=== PATIENT | female | born 1955 | race Caucasian/White ===

== ENCOUNTER 2016-12-16 08:55 | Emergency (ER) | payer OTHER ==
[~2016-12-16] VITALS: Ht 165.1 cm; Wt 89.0 kg
[~2016-12-16 08:55] MED LIST: BUTA1CAP38 PO; ONDA4TAB8 PO
[2016-12-16 08:58] VITALS: Ht 165.1 cm; Wt 89.0 kg
[2016-12-16] MEDS ORDERED: traMADol 50 MG TAB PO ONE (09:30)
--- NOTE | 2016-12-16 09:45 | ERD ---
ER Documentation Chief Complaint Date/Time DATE: 12/16/16 TIME: 09:44 Chief Complaint rt shoulder pain , rt arm numbness x 2 weeks HPI 61-year-old female presents with right posterior anterior shoulder pain that is achy and diffuse for the past 2 weeks. She has tried taking Tylenol and ibuprofen with some relief however mild improvement only. She denies any trauma or fevers or chills. She denies weakness. ROS All systems reviewed and are negative except as per history of present illness. Medications Home Meds Active Scripts Tramadol HCl (Tramadol HCl) 50 Mg Tablet, 50 MG PO Q4 Y for PAIN, #20 TAB Prov:JONI RENDON PA-C 12/16/16 Uqddfenppw-Vipdugwzeiuvt-Uzhnxdae* (Fioricet*) 50-300-40 Mg Capsule, 1 CAP PO Q4H Y for HEADACHE for 10 Days, #30 CAP Prov:GREGORY BECK PA-C 05/31/16 Ondansetron Hcl* (Zofran*) 4 Mg Tablet, 4 MG PO Q6H for NAUSEA AND/OR VOMITING, #30 TAB Prov:GREGORY BECK PA-C 05/31/16 Allergies Allergies: Coded Allergies: Penicillins (Verified Allergy, Intermediate, 12/16/16) PMhx/Soc History of Surgery: Yes (caesarian section) Anesthesia Reaction: No Hx Neurological Disorder: Yes Hx Respiratory Disorders: No Hx Cardiac Disorders: Yes (hypertension) Hx Psychiatric Problems: No Hx Miscellaneous Medical Probl: Yes (diabetes mellitus; gastric ulcers) Hx Alcohol Use: No Hx Substance Use: No Hx Tobacco Use: No Smoking Status: Never smoker Physical Exam Vitals Vital Signs Date Time Temp Pulse Resp B/P Pulse Ox O2 Delivery O2 Flow Rate FiO2 12/16/16 08:58 98.1 70 18 145/88 99 Physical Exam General: Well-developed, well-nourished. The patient appears in no acute distress. HEENT: Head is normocephalic, atraumatic. No scleral icterus. Neck: Supple. Nontender. Lungs: Clear to auscultation. Normal air movement. Heart: Regular rate and rhythm. S1 and S2 are normal. No murmurs, gallops, or rubs. Abdomen: Nondistended. Extremities: Diffuse right shoulder pain at the posterior aspect, there is no scapular winging, no bony deformities. There is no erythema, no warmth, no rashes. Patient is distally neurovascularly intact. Neurologic: Alert and oriented 3. No focal deficits. Normal speech and gait. Skin: Normal turgor. No rash or lesions. Results 24 hrs Current Medications Medications (Trade) Dose Ordered Sig/Jean Route PRN Reason Start Time Stop Time Status Last Admin Dose Admin Tramadol HCl (Ultram) 50 mg ONCE ONCE PO 12/16/16 09:30 12/16/16 09:31 DC 12/16/16 09:17 PROCEDURE: XR right shoulder. CLINICAL INDICATION: Right shoulder pain x 2 weeks TECHNIQUE: AP, Internal and external rotation views of the right shoulder were performed. COMPARISON: None. FINDINGS: There is normal osseous mineralization and alignment. No acute fracture or osseous lesion is identified. Mild degenerative changes are seen at the acromioclavicular joint. The soft tissues are unremarkable. IMPRESSION: Mild degenerative changes are seen at the acromioclavicular joint. Otherwise, no significant abnormalities are identified. RPTAT:AAJJ Physician Vincent Date Time Electronically viewed and signed by Physician Vincent on 12/16/2016 09: 50 MC/ Procedures/MDM ED course: Patient was given tramadol for pain. MDM: 61-year-old female comes in with right shoulder pain, patient has diffuse shoulder tenderness, likely from tendinitis. There is no evidence of fracture on x-ray, signs of septic arthritis. 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 Patient will be given a short course of tramadol for pain medication, and will be discharged home. Departure Diagnosis: Primary Impression: Shoulder pain Condition: JONI Vu PA-C December 16, 2016 09:45
--- NOTE | 2016-12-16 09:50 | RADRPT ---
PROCEDURE: XR right shoulder. CLINICAL INDICATION: Right shoulder pain x 2 weeks TECHNIQUE: AP, Internal and external rotation views of the right shoulder were performed. COMPARISON: None. FINDINGS: There is normal osseous mineralization and alignment. No acute fracture or osseous lesion is identified. Mild degenerative changes are seen at the acromioclavicular joint. The soft tissues are unremarkable. IMPRESSION: Mild degenerative changes are seen at the acromioclavicular joint. Otherwise, no significant abnorma lities are identified. RPTAT:AAJJ Physician Vincent Date Time Electronically viewed and signed by Mars Pickard Physician on 12/16/2016 09:50 QUOC/
[2016-12-16] MEDS ORDERED: TRAM50TA2 PO (10:05)
== END 2016-12-16 10:24 | disposition home or self-care (01) ==
LOC: FTE 08:55
DX: M25.511 Pain in right shoulder (principal); I10 Essential (primary) hypertension; E11.9 Type 2 diabetes mellitus without complications
CPT/HCPCS: 73030; Z7502; Z7610

== ENCOUNTER 2017-02-23 16:46 | Emergency (ER) | payer OTHER ==
[~2017-02-23] VITALS: Ht 167.6 cm; Wt 90.0 kg
[~2017-02-23 16:46] MED LIST changes: +TRAM50TA2 PO
[2017-02-23 17:03] VITALS: Ht 167.6 cm; Wt 90.0 kg
[2017-02-23] MEDS ORDERED: SOD CHLORIDE 0.9% 1,000 ML IV STA (18:10)
[2017-02-23 18:59] LABS: BASOPHILS % 0.6 % (0.0-2.0); EOSINOPHILS # 0.2 10^3/ul (0.0-0.5); EOSINOPHILS % 2.6 % (0.0-7.0); HEMATOCRIT 38.2 % (37.0-47.0); LYMPHOCYTES # 2.7 10^3/ul (0.8-2.9); LYMPHOCYTES % 39.1 % (15.0-51.0); MEAN CORPUSCULAR HEMOGLOBIN 26.6 pg (29.0-33.0); MEAN CORPUSCULAR VOLUME 78.1 fl (82.0-101.0); MEAN PLATELET VOLUME 10.2 fl (7.4-10.4); MONOCYTE # 0.6 10^3/ul (0.3-0.9); MONOCYTES % 9.1 % (0.0-11.0); NEUTROPHIL # 3.3 10^3/ul (1.6-7.5); NEUTROPHILS % 48.2 % (39.0-77.0); PLATELET COUNT 227 10^3/UL (140-415); RED BLOOD COUNT 4.89 10^6/ul (4.20-5.40); RED CELL DISTRIBUTION WIDTH 13.7 % (11.5-14.5); WHITE BLOOD COUNT 6.9 10^3/ul (4.8-10.8)
[2017-02-23 19:02] LABS: ADD UMIC YES; UR ASCORBIC ACID 20 mg/dL (NEGATIVE); UR BACTERIA FEW /HPF (NONE SEEN); UR BILIRUBIN (Dip) NEGATIVE (NEGATIVE); UR BLOOD (Dip) NEGATIVE (NEGATIVE); UR CLARITY CLEAR (CLEAR); UR COLOR YELLOW (YELLOW); UR GLUCOSE (Dip) NEGATIVE (NEGATIVE); UR KETONES (Dip) NEGATIVE (NEGATIVE); UR LEUKOCYTE ESTERASE (Dip) TRACE Leu/ul (NEGATIVE); UR NITRITE (Dip) NEGATIVE (NEGATIVE); UR RBC 1 /HPF (0-5); UR SPECIFIC GRAVITY (Dip) 1.004 (1.003-1.030); UR SQUAMOUS EPITHELIAL CELL FEW /HPF (FEW); UR TOTAL PROTEIN (Dip) NEGATIVE (NEGATIVE); UR UROBILINOGEN (Dip) NEGATIVE (NEGATIVE)
[2017-02-23 19:20] LABS: ALBUMIN 4.3 g/dl (3.3-4.9); ALBUMIN/GLOBULIN RATIO 1.02; BILIRUBIN,INDIRECT 0.2 mg/dl (0-1.1); BILIRUBIN,TOTAL 0.2 mg/dl (0.2-1.3); CALCIUM 10.2 mg/dl (8.4-10.2); CREATININE 0.59 mg/dl (0.44-1.00); POTASSIUM 3.5 mmol/L (3.5-5.1); TOTAL PROTEIN 8.5 g/dl (6.1-8.1)
--- NOTE | 2017-02-23 21:36 | RADRPT ---
PROCEDURE: CT Abdomen and Pelvis without contrast. CLINICAL INDICATION: Flank pain, vaginal pain, history of kidney stones. TECHNIQUE: A CT scan of the abdomen and pelvis was performed without intravenous contrast. Wu l and sagittal reformatted images were generated. Images were reviewed on a high-resolution PACS wor kstation. CTDIvol: 20.22 mGy. DLP: 1181.65 mGy-cm. One or more of the following dose reduction techniques were used: - Automated exposure control. - Adjustment of the mA and/or kV according to patient size. - Use of iterative reconstruction technique. COMPARISON: None. FINDINGS: There are mild atelectatic changes in both lower lungs. A calcified granuloma is noted in the right lower lobe. Evaluation of the abdominal and pelvic viscera is limited by the lack of oral and intravenous contra st. The liver is enlarged (22.8 cm) and diffusely hypodense, consistent with fatty infiltration. The ga llbladder is normal in appearance. The common bile duct is not dilated. The spleen is not enlarged. No pancreatic lesion is identified and there is no pancreatic ductal dilatation. The adrenal glands are unremarkable. The kidneys are normal in size. There is no perinephric fat stranding. No hydronephrosis is seen. A 3 mm right renal calcification is nonspecific. There are cysts in both kidneys measuring up to 1.6 c m on the right. The small and large bowel are normal in caliber. There is no bowel wall thickening. The appendix is normal. The urinary bladder is unremarkable. The pelvic organs are within normal limits. No lymphadenopathy is identified. There is no ascites. No pneumoperitoneum is seen. There are mild t o moderate arterial calcifications. No suspicious osseous lesion is idenitified. IMPRESSION: 1. No hydronephrosis. 2. Nonspecific 3 mm right renal calcification, possibly a nonobstructing stone or parenchymal calci fication. 3. Hepatomegaly and fatty infiltration of the liver. 4. Normal appendix. 5. Mild to moderate atherosclerotic arterial calcifications. RPTAT: HTAR .Eric Mosqueda MD, Date Time Electronically viewed and signed by .Eric Mosqueda MD, on 02/23/2017 21:36 .R/
[2017-02-23] MEDS ORDERED: SITA100T8 PO (21:56)
[2017-02-23] MEDS ORDERED: HYD25 PO (21:56)
[2017-02-23] MEDS ORDERED: METF1000 PO (21:56)
[2017-02-23 21:57] VITALS: BP 150/77; PULSE 88; RESP 19; TEMP 98.6
[2017-02-23] MEDS ORDERED: GABA100C14 PO (21:57)
[2017-02-23] MEDS ORDERED: AMLO-147 PO (21:57)
[2017-02-23] MEDS ORDERED: GLIM4TAB PO (21:58)
[2017-02-23] MEDS ORDERED: LANT3I SC (21:58)
[2017-02-23] MEDS ORDERED: INSU100I12 SQ (21:59)
[2017-02-23] MEDS ORDERED: morphine 4 MG/ML VIAL IV STA (22:01)
--- NOTE | 2017-02-23 22:06 | ERD ---
ER Documentation Chief Complaint Date/Time DATE: 02/23/17 TIME: 21:59 Chief Complaint r. side flank with pain with urination x today HPI 62-year-old female presents with right flank pain as well as dysuria for 1 day. Says that she does have a history of kidney stones in the past. It has been many years since she had passed any stones. She denies any fevers or chills. She has no nausea or vomiting. ROS All systems reviewed and are negative except as per history of present illness. Medications Home Meds Active Scripts Tramadol HCl (Tramadol HCl) 50 Mg Tablet, 50 MG PO Q4 Y for PAIN, #20 TAB Prov:JONI RENDON PA-C 12/16/16 Rjtgatujya-Sngqtymsgnykx-Iybbpixz* (Fioricet*) 50-300-40 Mg Capsule, 1 CAP PO Q4H Y for HEADACHE for 10 Days, #30 CAP Prov:GREGORY BECK PA-C 05/31/16 Ondansetron Hcl* (Zofran*) 4 Mg Tablet, 4 MG PO Q6H for NAUSEA AND/OR VOMITING, #30 TAB Prov:GREGORY BECK PA-C 05/31/16 Reported Medications Insulin Lispro (Humalog Kwikpen U-100) 100 Unit/1 Ml Insuln.pen, 35 UNIT SQ BID 02/23/17 Insulin Glargine* (Lantus*) 100 Unit/Ml Soln, 30 UNIT SC QHS, #1 VIAL 02/23/17 Glimepiride* (Glimepiride*) 4 Mg Tablet, 4 MG PO WITH BREAKFAST DINNE, TAB 02/23/17 Gabapentin* (Gabapentin*) 100 Mg Capsule, 100 MG PO TID, #90 CAP 02/23/17 Amlodipine Besylate* (Amlodipine Besylate*) 10 Mg Tablet, 10 MG PO DAILY, #30 TAB 02/23/17 Sitagliptin* (Januvia*) 100 Mg Tablet, 100 MG PO DAILY, #30 TAB 02/23/17 Metformin Hcl* (Metformin Hcl*) 1,000 Mg Tablet, 1000 MG PO WITH BREAKFAST DINNE , #60 TAB 02/23/17 Hydrochlorothiazide* (Hydrochlorothiazide*) 25 Mg Tab, 25 MG PO QAM, #30 TAB 02/23/17 Allergies Allergies: Coded Allergies: Penicillins (Verified Allergy, Intermediate, 02/23/17) PMhx/Soc History of Surgery: Yes (caesarian section) Anesthesia Reaction: No Hx Neurological Disorder: Yes Hx Respiratory Disorders: No Hx Cardiac Disorders: Yes (hypertension) Hx Psychiatric Problems: No Hx Miscellaneous Medical Probl: Yes (diabetes mellitus; gastric ulcers) Hx Alcohol Use: No Hx Substance Use: No Hx Tobacco Use: No Smoking Status: Never smoker Physical Exam Vitals Vital Signs Date Time Temp Pulse Resp B/P Pulse Ox O2 Delivery O2 Flow Rate FiO2 02/23/17 20:41 97.5 85 20 143/77 100 Room Air 02/23/17 18:57 98.6 84 24 154/83 100 02/23/17 17:03 98.9 85 20 122/85 98 Physical Exam Const: [] No distress Head: Atraumatic Eyes: Normal Conjunctiva ENT: Normal External Ears, Nose and Mouth. Neck: Full range of motion..~ No meningismus. Resp: Clear to auscultation bilaterally Cardio: Regular rate and rhythm, no murmurs Abd: Soft, very mild right upper quadrant tenderness without guarding or rebound, non distended. Normal bowel sounds Skin: No petechiae or rashes Back: No midline or flank tenderness Ext: No cyanosis, or edema Neur: Awake and alert and oriented 3, no focal deficit Psych: Normal Mood and Affect Result Diagram: 02/23/17184902/23/171849 Results 24 hrs Laboratory Tests Test 02/23/17 18:50 White Blood Count 6.910^3/ul Red Blood Count 4.8910^6/ul Hemoglobin 13.0g/dl Hematocrit 38.2% Mean Corpuscular Volume 78.1fl Mean Corpuscular Hemoglobin 26.6pg Mean Corpuscular Hemoglobin Concent 34.0g/dl Red Cell Distribution Width 13.7% Platelet Count 79910^3/UL Mean Platelet Volume 10.2fl Neutrophils % 48.2% Lymphocytes % 39.1% Monocytes % 9.1% Eosinophils % 2.6% Basophils % 0.6% Nucleated Red Blood Cells % 0.0/100WBC Neutrophils # 3.310^3/ul Lymphocytes # 2.710^3/ul Monocytes # 0.610^3/ul Eosinophils # 0.210^3/ul Basophils # 0.010^3/ul Nucleated Red Blood Cells # 0.010^3/ul Urine Color YELLOW Urine Clarity CLEAR Urine pH 6.0 Urine Specific Griffin 1.004 Urine Ketones NEGATIVEmg/dL Urine Nitrite NEGATIVEmg/dL Urine Bilirubin NEGATIVEmg/dL Urine Urobilinogen NEGATIVEmg/dL Urine Leukocyte Esterase TRACELeu/ul Urine Microscopic RBC 1/HPF Urine Microscopic WBC 2/HPF Urine Squamous Epithelial Cells FEW/HPF Urine Bacteria FEW/HPF Urine Hemoglobin NEGATIVEmg/dL Urine Glucose NEGATIVEmg/dL Urine Total Protein NEGATIVEmg/dl Sodium Level 145mmol/L Potassium Level 3.5mmol/L Chloride Level 100mmol/L Carbon Dioxide Level 27mmol/L Anion Gap 22 Blood Urea Nitrogen 7mg/dl Creatinine 0.59mg/dl Glucose Level 157mg/dl Calcium Level 10.2mg/dl Total Bilirubin 0.2mg/dl Direct Bilirubin 0.00mg/dl Indirect Bilirubin 0.2mg/dl Aspartate Amino Transf (AST/SGOT) 31IU/L Alanine Aminotransferase (ALT/SGPT) 40IU/L Alkaline Phosphatase 107IU/L Total Protein 8.5g/dl Albumin 4.3g/dl Globulin 4.20g/dl Albumin/Globulin Ratio 1.02 Lipase 139U/L Current Medications Medications (Trade) Dose Ordered Sig/Jean Route PRN Reason Start Time Stop Time Status Last Admin Dose Admin Sodium Chloride (NS) 1,000 ml @ 1,000 mls/hr Q1H STAT IV 02/23/17 18:10 02/23/17 19:09 DC 02/23/17 18:56 Procedures/MDM Possible UTI and renal colic. Fatty liver. No signs of sepsis. Patient was hydrated with normal saline in the emergency room and given morphine for pain. Hydrated with normal saline. Has positive leukocyte esterase on her urinalysis without any other impressive abnormalities. No signs of sepsis. Going to discharge her with pain medication as well as ciprofloxacin for the urinary tract infection. Also recommending primary care follow-up in the next 2-[address] abdomen pelvis interpretation: Right renal calculus, no obstruction, no free air, no fractures. Hepatic steatosis. Departure Diagnosis: Primary Impression: UTI (urinary tract infection) Additional Impressions: Hepatic steatosis Kidney stone on right side Condition: Stable NASRIN ALEGRIA DO Feb 23, 2017 22:06
[2017-02-23] MEDS ORDERED: PHEN-612 PO (22:08)
[2017-02-23] MEDS ORDERED: NAPR-688 PO (22:08)
[2017-02-23] MEDS ORDERED: CIPR500T4 PO (22:08)
[2017-02-23] MEDS ORDERED: HYDR-906 PO (22:08)
[2017-02-23] MEDS ORDERED: morphine 10 MG INJ IM ONE (22:30)
== END 2017-02-23 22:25 | disposition home or self-care (01) ==
LOC: E/R 16:46
DX: N39.0 Urinary tract infection, site not specified (principal); K76.0 Fatty (change of) liver, not elsewhere classified; N20.0 Calculus of kidney; I10 Essential (primary) hypertension; E11.9 Type 2 diabetes mellitus without complications; Z79.84 Long term (current) use of oral hypoglycemic drugs; Z79.4 Long term (current) use of insulin
CPT/HCPCS: 36415; 74176; 80053; 81001; 83690; 85025; 96372; J2270; J7030; Z7502

== ENCOUNTER 2017-04-14 14:02 | Emergency (ER) | payer OTHER ==
[~2017-04-14] VITALS: Ht 157.5 cm; Wt 88.5 kg
[~2017-04-14 14:02] MED LIST changes: +AMLO-147 PO; -BUTA1CAP38 PO; +CIPR500T4 PO; +GABA100C14 PO; +GLIM4TAB PO; +HYDR-906 PO; +HYDR25TA6 PO; +INSU100I12 SQ; +LANT3I SC; +METF1000 PO; +NAPR-688 PO; -ONDA4TAB8 PO; +PHEN-612 PO; +SITA100T8 PO; -TRAM50TA2 PO
[2017-04-14 14:06] VITALS: Ht 157.5 cm; Wt 88.5 kg
[2017-04-14] MEDS ORDERED: HYDROCODONE/APAP (5/325) TAB PO ONE (15:30)
--- NOTE | 2017-04-14 16:30 | RADRPT ---
PROCEDURE: Chest x-ray CLINICAL INDICATION: Chest pain TECHNIQUE: Chest single view COMPARISON: None FINDINGS: There is mild cardiomegaly and an sclerotic aortic calcification. The pulmonary vessels are normal i n caliber. The lungs are clear. The costophrenic angles are sharp. The visualized bony thorax is unremarkable. IMPRESSION: No acute cardiopulmonary disease. RPTAT: HH .Jayy Guillermo MD, Date Time Electronically viewed and signed by .Jayy Guillermo MD, MD on 04/14/2017 16:30 .W/
--- NOTE | 2017-04-14 16:37 | RADRPT ---
PROCEDURE: XR thoracic spine CLINICAL INDICATION: Back pain. TECHNIQUE: AP, swimmers and lateral views of the thoracic spine were obtained. COMPARISON: None available FINDINGS: Bone architecture and mineralization are preserved. Thoracic kyphosis is preserved. Vertebral body s tature is intact. No significant disk space narrowing is present. No lytic or blastic lesion is luiz dent. Mild multilevel anterior spondylosis is present. The posterior elements and paraspinal soft t issues are normal. RPTAT:HJJR IMPRESSION: Mild multilevel anterior spondylosis is present. Otherwise unremarkable thoracic spine series. Physician Ajith Date Time Electronically viewed and signed by Physician Ajith on 04/14/2017 16:37 JR/
[2017-04-14] MEDS ORDERED: HYDR-906 PO (16:38)
[2017-04-14 17:17] VITALS: BP 139/84; PULSE 69; RESP 20; TEMP 98.2
--- NOTE | 2017-04-14 17:21 | ERA ---
ER Documentation Chief Complaint Date/Time DATE: 04/14/17 TIME: 17:03 Chief Complaint back pain and right shoulder pain x 3 monhts, no injury HPI 8-year-old female with a chief complaint of upper back pain is worse when she moves her right shoulder. Pain 7 out of 10 when moving the right arm. Pain has been lasting for 3 months. Patient denies mechanism of injury, history of cancer, unexplained weight loss, saddle anesthesia, generalized neurological deficit, incontinence, urinary retention, thoracic pain, or pain at rest. Has been evaluated by PCP and given ibuprofen with minimal relief. Patient has no other complaints and describes no other associated manifestations. Nursing notes have been reviewed and are consistent with history given. ROS All systems reviewed and are negative except as per history of present illness. Medications Home Meds Active Scripts Hydrocodone/Acetaminophen ([place] 5-325 Tablet) 1 Each Tablet, 1 TAB PO Q6H Y for PAIN, #7 TAB Prov:NICOLE BOWEN PA-C 04/14/17 Phenazopyridine Hcl* (Phenazopyridine Hcl*) 100 Mg Tablet, 100 MG PO TID, #8 TAB Prov:NASRIN ALEGRIA DO 02/23/17 Ciprofloxacin Hcl* (Ciprofloxacin Hcl*) 500 Mg Tablet, 500 MG PO BID, #6 TAB Prov:NASRIN ALEGRIA DO 02/23/17 Naproxen* (Naproxen*) 500 Mg Tablet, 500 MG PO BID Y for pian, #20 TAB Prov:NASRIN ALEGRIA DO 02/23/17 Hydrocodone/Acetaminophen ([place] 5-325 Tablet) 1 Each Tablet, 1 EACH PO Q6, #20 TAB Prov:NASRIN ALEGRIA DO 02/23/17 Reported Medications Insulin Lispro (Humalog Kwikpen U-100) 100 Unit/1 Ml Insuln.pen, 35 UNIT SQ BID 02/23/17 Insulin Glargine* (Lantus*) 100 Unit/Ml Soln, 30 UNIT SC QHS, #1 VIAL 02/23/17 Glimepiride* (Glimepiride*) 4 Mg Tablet, 4 MG PO WITH BREAKFAST DINNE, TAB 02/23/17 Gabapentin* (Gabapentin*) 100 Mg Capsule, 100 MG PO TID, #90 CAP 02/23/17 Amlodipine Besylate* (Amlodipine Besylate*) 10 Mg Tablet, 10 MG PO DAILY, #30 TAB 02/23/17 Sitagliptin* (Januvia*) 100 Mg Tablet, 100 MG PO DAILY, #30 TAB 02/23/17 Metformin Hcl* (Metformin Hcl*) 1,000 Mg Tablet, 1000 MG PO WITH BREAKFAST DINNE , #60 TAB 02/23/17 Hydrochlorothiazide* (Hydrochlorothiazide*) 25 Mg Tab, 25 MG PO QAM, #30 TAB 02/23/17 Allergies Allergies: Coded Allergies: Penicillins (Verified Allergy, Intermediate, 02/23/17) PMhx/Soc History of Surgery: Yes (caesarian section) Anesthesia Reaction: No Hx Neurological Disorder: Yes Hx Respiratory Disorders: No Hx Cardiac Disorders: Yes (hypertension) Hx Psychiatric Problems: No Hx Miscellaneous Medical Probl: Yes (diabetes mellitus; gastric ulcers) Hx Alcohol Use: No Hx Substance Use: No Hx Tobacco Use: No Physical Exam Vitals Vital Signs Date Time Temp Pulse Resp B/P Pulse Ox O2 Delivery O2 Flow Rate FiO2 04/14/17 14:06 98.9 75 18 145/89 98 Physical Exam Const: Well-appearing. Mild distress. Back: Mild para spinal muscle tenderness of the thoracic spine. Reproduction of pain with movement of the right arm. Negative Adson's and EAST test.. [Negative straight leg raise]. Range of motion decreased secondary to pain. Neur: No saddle anesthesia. Neurovascularly intact bilaterally. Head: Normocephalic, Atraumatic. Eyes: Non-injected; No discharge. EOMI and LEO bilaterally. Ears: Normal External Ears, EACs clear, TM normal bilaterally without erythema. Nose: Normal external nose; no discharge, or sinus tenderness. Oral: No oral edema visualized. Mucous membranes moist and pink. Neck: No tenderness. No cervical lymphadenopathy, or masses palpated. Supple ~ No meningismus. Pulm: Good air movement in upper and lower respiratory tracts. Clear to auscultation bilaterally. No dyspnea or stridor. Cardio: Regular rate and rhythm; No murmurs, gallops or rubs auscultated. Radia pulses 2+ bilaterally. No cyanosis noted. Capillary refill less than 2 seconds. Abd: Normal bowel sounds. Soft, non tender, non distended. MS: Normal motor strength, normal tone with gross examination. Skin: No petechiae or rashes. Good turgor. Ext: No edema. Normal movement of all extremities grossly observed. Psych: Normal Mood and Affect. Results 24 hrs Current Medications Medications (Trade) Dose Ordered Sig/Jean Route PRN Reason Start Time Stop Time Status Last Admin Dose Admin Acetaminophen/ Hydrocodone Bitart ([place] (5/325)) 1 tab ONCE ONCE PO 04/14/17 15:30 04/14/17 15:31 DC 04/14/17 16:29 Procedures/MDM Well-appearing otherwise healthy 62-year-old female with a chief complaint of upper back pain that is worse with moving her right shoulder as described in history and physical examination. This is a chronic condition. X-ray of the thoracic spine was obtained, read by the radiologist, given the following impression: Unremarkable. I will suspicion for bacterial process, bony pathology, or neurovascular compromise. I have spoke with the patient regarding their condition and future management. They have verbally responded that they understand their status and treatment plan. The patients vitals are stable, and their current condition is appropriate for discharge. The patient will be given discharge instructions with return precautions. Departure Diagnosis: Primary Impression: Back pain Qualified Code: M54.5 - Acute low back pain without sciatica, unspecified back pain laterality Condition: Stable Patient Instructions: Back Pain (Acute Or Chronic) Referrals: SANJUANITA JONES (PCP) Additional Instructions: Xochitl un seguimiento con rodas PCP dentro de los prximos 1-3 mead para dickson evaluaci n ms completa y dickson posible derivacin a un especialista. Devuelva el departamento de emergencia inmediatamente si los sntomas empeoran o cambian. Si tiene alguna pregunta con respecto a los medicamentos, consulte con rodas farmac utico o con nosotros antes de salir. Si se producen reacciones adversas mientras artis maegan medicamentos, suspenda el tratamiento y regrese inmediatamente al servicio de urgencias. Raymer maegan medicamentos segn las indicaciones y complete el curso completo del tratamiento. NICOLE BOWEN PA-C Apr 14, 2017 17:20
== END 2017-04-14 17:20 | disposition home or self-care (01) ==
LOC: FTE 14:02
DX: M54.5 Low back pain (principal); I10 Essential (primary) hypertension; E11.9 Type 2 diabetes mellitus without complications; Z79.4 Long term (current) use of insulin; Z79.84 Long term (current) use of oral hypoglycemic drugs
CPT/HCPCS: 71010; 72072; Z7502; Z7610